=== PATIENT | male | born 1980 | race Caucasian/White ===

== ENCOUNTER 2016-11-27 15:02 | Emergency (ER) | payer OTHER ==
[~2016-11-27] VITALS: Ht 180.3 cm; Wt 85.9 kg
[2016-11-27 15:09] VITALS: TEMP 98.4
[2016-11-27] MEDS ORDERED: ILOTYCIN5 MG/GM OP (15:52)
[2016-11-27] MEDS ORDERED: MEDROL 4MG DOSPA4 MG PO (15:53)
[2016-11-27] MEDS ORDERED: VALTREX1 GM PO (16:14)
[2016-11-27] MEDS ORDERED: ANTIVERT 25MG25 MG PO (16:14)
[2016-11-27] MEDS ORDERED: PREDNISONE20 MG PO (16:49)
[2016-11-27 16:53] VITALS: BP 135/92; PULSE 102
== END 2016-11-27 17:03 | disposition home or self-care (01) ==
LOC: COL.ER 15:02
DX: G51.0 Bell's palsy (principal); R42 Dizziness and giddiness